=== PATIENT | female | born 1950 | race Caucasian/White ===

== ENCOUNTER → 2017-02-16 14:08 | Outpatient (CLI) | payer BC | END | disposition home or self-care (01) | LOC: D.MAMMO 11:00 | DX: Z12.31 Encounter for screening mammogram for malignant neoplasm of breast (principal) ==

== ENCOUNTER → 2017-03-11 17:16 | Outpatient (CLI) | payer BC | END | disposition home or self-care (01) | LOC: D.MAMMO 10:30 | DX: R92.8 Other abnormal and inconclusive findings on diagnostic imaging of breast (principal) ==

== ENCOUNTER → 2017-07-09 09:07 | Outpatient (CLI) | payer BC | END | disposition home or self-care (01) | LOC: D.CT 09:07 | DX: R49.0 Dysphonia (principal); R07.0 Pain in throat; R22.1 Localized swelling, mass and lump, neck ==

== ENCOUNTER → 2017-12-10 13:38 | Outpatient (CLI) | payer BC | END | disposition home or self-care (01) | LOC: D.RT 13:38 | DX: J44.9 Chronic obstructive pulmonary disease, unspecified (principal) ==

== ENCOUNTER → 2018-06-14 09:18 | Outpatient (CLI) | payer BC | END | disposition home or self-care (01) | LOC: D.CT 09:18 | PROVIDERS: ATTEND Internal Medicine Pulmonary Disease | DX: R91.8 Other nonspecific abnormal finding of lung field (principal) ==

== ENCOUNTER 2018-12-13 05:00 | Inpatient (IN) | payer MEDICARE, BC ==
[2018-12-10 12:23] LABS: ANION GAP 8.5 mmol/L (8-16); CALCIUM 8.7 mg/dL (8.5-10.1); CARBON DIOXIDE 30.7 mmol/L (21.0-32.0); CREATININE - SERUM 0.9 mg/dL (0.6-1.3); POTASSIUM - SERUM 4.2 mmol/L (3.5-5.1)
[2018-12-10 12:30] LABS: BASOPHILS 0.8 % (0-2); EOSINOPHILS 2.2 % (0-7); HEMATOCRIT 40.2 % (36.0-48.0); HEMOGLOBIN 13.9 g/dL (12-16); IMMATURE GRANULOCYTES 0.2 % (0-5); LYMPHOCYTES 30.8 % (15-50); MCH 32.5 pg (26.0-34.0); MCHC 34.6 g/dL (31.0-37.0); MCV 93.9 fL (80.0-100.0); MEAN PLATELET VOLUME 10.5 fL (7.4-10.4); MONOCYTES 6.1 % (2-11); NEUTROPHILS 59.9 % (40-80); PLATELET COUNT 276 10x3/uL (130-400); RBC 4.28 10x6/uL (4.00-5.40); RDW 13.8 % (11.5-14.5); WBC 9.2 10x3/uL (4.8-10.8)
[~2018-12-13] VITALS: Ht 165.1 cm; Wt 59.1 kg
[~2018-12-13 05:00] MED LIST: ALBUTEROL SULF8.5 GM INH; BACLOFEN20 M1 PO; NAPROSYN500 MG PO; NEURONTIN 300300 MG PO; TRAZODONE HCL150 MG PO
[2018-12-13 05:49] VITALS: BP 131/56
--- NOTE | 2018-12-13 11:29 | NUR ---
PT RECIEVED FROM SURGERY VIA BED. BP STABLE. PULSE 44, PT STATES THAT IS HER BASELINE. UNABLE TO OBTAIN OXYGEN SAT AT THIS TIME DUE TO POOR CIRCULATION IN EXTREMITIES, PT'S HAND PLACED UNDER BLANKET, WILL RECHECK. JERICA NOTED, BLUE/GREEN URINE DUE TO MEDICATION RECIEVED IN RECOVERY. PT AND FAMILY EDUCATED ON THIS. PT IS PALE IN APPEARANCE. FAMILY AT BEDSIDE. NO DISTERESS NOTED. BED IN LOWEST POSITION. CALL LIGHT WITHIN REACH. WILL CONTINUE TO MONITOR.
[2018-12-13 14:16] VITALS: BP 131/56; Ht 165.1 cm; Wt 59.1 kg
[2018-12-13 18:16] VITALS: BP 116/59
--- NOTE | 2018-12-13 19:05 | NUR ---
REPORT RECEIVED FROM OFF GOING NURSE. PT IS LAYING IN BED WITH PIZANO TO GRAVITY DRAINAGE. PT STATES KNOWLEDGE OF TIME CYCLE OPERATOR AND HOW TO USE, AND THAT SHE HAS BEEN USING IT NEEDED. PT DENIED FURTHER NEEDS. SHIFT ASSESSMENT COMPLETED, SEE FLOWSHEET FOR DETAILS. NO SIGNS OF ACUTE DISTRESS NOTED. WILL CONTINUE TO MONITOR.
[2018-12-13 19:24] VITALS: BP 108/51
[2018-12-14 00:45] VITALS: BP 108/46
[2018-12-14 06:01] VITALS: BP 107/57
[2018-12-14 07:28] VITALS: BP 117/38
--- NOTE | 2018-12-14 08:05 | NUR ---
PT LAYING IN BED. STATES SHE IS FRUSTRATED BECUASE THEY HAD TO SWITCH HER BED LAST NIGHT, SCD'S ARE NOT WORKING, TOO MUCH STUFF ON THE BED, AND SHE IS COLD. REPOSITIONED PT IN BED TO COMFORTABLE POSITION, TURNED THERMOSTAT UP. WILL REPLACE SCD MACHINE. ASSESSMENT COMPLETE. VAGINAL PACKING SATURATED WITH BLOOD. WILL NOTIFY DR. GA. DENIES FURTHER NEEDS AT THIS TIME. WILL CONTINUE TO MONITOR.
[2018-12-14 11:00] VITALS: BP 114/43
--- NOTE | 2018-12-14 11:22 | NUR ---
BLOOD SATURATED PACKING REMOVED AND PIZANO REMOVED WITH CATHETER TIP INTACT. 1600 ML DARK YELLOW URINE NOTED. INSTRUCTED PT TO NOTIFY ME WHEN SHE NEEDS TO URINATE. SPENT SEVERAL MINUTES ANSWERING QUESTIONS TO PT SATISFACTION. WILL CONTINUE TO MONITOR.
--- NOTE | 2018-12-14 12:28 | NUR ---
I have reviewed this patient and I concur with the Shift Assessment completed by the Licensed Practical Nurse today this shift. BASSEM HAJI IN WITH PATIENT ASSSITING HER TO RESTROOM.
--- NOTE | 2018-12-14 12:37 | NUR ---
IV D/C WITH CATHETER TIP INTACT. PT ASSISTED TO BATHROOM. INSTRUCTED TO CALL BEFORE GETTING BACK IN BED. PT EDUCATED ON POST OP CARE AND LIMITATIONS.
--- NOTE | 2018-12-14 14:01 | NUR ---
350ML CLEAR, DARK YELLOW URINE NOTED.
[2018-12-14] MEDS ORDERED: PERCOCET 7.5/321 TAB PO (15:07)
--- NOTE | 2018-12-14 16:09 | NUR ---
D/C PAPER WORK REVIEWED WITH PT AND FAMILY MEMBER. VERBALIZED UNDERSTANDING. ALL BELONGINGS SENT WITH PT. LEFT VIA WHEELCHAIR TO PERSONAL VEHICLE.
--- NOTE | 2018-12-14 18:14 | MORECARE ---
CASE MANAGEMENT DISCHARGE SUMMARY PATIENT: GAYATRI SALEH UNIT: [id number] ADM DATE: 12/13/18 AGE: 68 : 50 SEX: F ROOM/BED: D.1205 AUTHOR: NORMA PALACIOS PHYSICIAN: REFERRING PHYSICIAN: MADY GA MD DATE OF SERVICE: 12/14/18 Discharge Plan Patient Name: GAYATRI SALEH Facility: [facility]:[place] : 1950 Planned Disposition: Home Anticipated Discharge Date: Discharge Date: 12/14/2018 Expected LOS: Initial Reviewer: [email or web address] Initial Review Date: 12/14/2018 Generated: 12/14/18 7:13 pm DCPIA - Discharge Planning Initial Assessment Updated by [email or web address]: Milka Hendricks on 12/14/18 6:11 pm * Is the patient Alert and Oriented? Yes * PCP PHILIPP * [facility] * Preadmission Environment Home Alone * ADLs Independent * Equipment Walker * List name and contact numbers for known caregivers / representatives who currently or will assist patient after discharge: KENNY GIRARD - DAUGHTER- [phone] REKHA SALEH - SON - [phone] * Verbal permission to speak to the caregivers and representatives has been obtained from the patient. N/A * Community resources currently utilized None * Additional services required to return to the preadmission environment? No * Can the patient safely return to the preadmission environment? Yes * Has this patient been hospitalized within the prior 30 days at any hospital? No Patient Name: GAYATRI SALEH Page 86100 at 1814 All edits/amendments must be made on the electronic document DICTATION DATE: 12/14/181812 LIBRARY AIDE: PEDRO 12/14/181812 RPT#: [id number] DC DATE:12/14/18 STATUS: DIS IN [facility] [address] [place] [address] END OF REPORT
--- NOTE | 2018-12-14 18:25 | MORECARE ---
CASE MANAGEMENT DISCHARGE SUMMARY PATIENT: GAYATRI SALEH UNIT: [id number] ADM DATE: 12/13/18 AGE: 68 : 50 SEX: F ROOM/BED: D.1205 AUTHOR: NORMA PALACIOS PHYSICIAN: REFERRING PHYSICIAN: SENTHIL GA MD DATE OF SERVICE: 12/14/18 Discharge Plan Patient Name: GAYATRI SALEH Facility: [facility]:[place] : 1950 Planned Disposition: Home Anticipated Discharge Date: Discharge Date: 12/14/2018 Expected LOS: Initial Reviewer: [email or web address] Initial Review Date: 12/14/2018 Generated: 12/14/18 7:25 pm Comments DCP- Discharge Planning Updated by [email or web address]: Milka Hendricks on 12/14/18 5:[address] Patient Name: GAYATRI SALEH Admission Status: Elective Accout number: [id number] Admission Date: 12-13-2018 : 1950 Admission Diagnosis: Attending: Senthil Ga Current LOS: 1 Anticipated DC Date: Planned Disposition: Home Primary Insurance: MEDICARE PART A ONLY Discharge Planning Comments: CM met with patient to complete initial dc planning assessment. CM educated patient on the CM role and verbal consent given by patient to complete assessment. Patient lives at home alone where she is independent with her care. At discharge patient plans to return to her son's home for awhile until she recovers from surgery and feels this is a safe discharge. CM discussed availability of home health, rehab services, and medical equipment. Her family will drive her home. Patient denied known discharge needs at this time. CM will continue to follow and will assist as needed with dc plans/needs. Foreign Trade Teacher: Milka Hendricks DCPIA - Discharge Planning Initial Assessment Updated by [email or web address]: Milka Hendricks on 12/14/18 6:11 pm * Is the patient Alert and Oriented? Yes * PCP PHILIPP * [facility] * Preadmission Environment Home Alone * ADLs Independent * Equipment Walker * List name and contact numbers for known caregivers / representatives who currently or will assist patient after discharge: KENNY SHAJI - DAUGHTER- [phone] REKHA THERESE SHEPARD - [phone] * Verbal permission to speak to the caregivers and representatives has been obtained from the patient. N/A * Community resources currently utilized None * Additional services required to return to the preadmission environment? No * Can the patient safely return to the preadmission environment? Yes * Has this patient been hospitalized within the prior 30 days at any hospital? No Last DP export: 12/14/18 5:14 p Patient Name: GAYATRI SALEH Page 87007 at 1825 All edits/amendments must be made on the electronic document DICTATION DATE: 12/14/181824 COMB MACHINE OPERATOR: PEDRO 12/14/181824 RPT#: [id number] DC DATE:12/14/18 STATUS: DIS IN [facility] [address] [place] [address] END OF REPORT
--- NOTE | 2019-01-13 07:14 | OP ---
PATIENT NAME: GAYATRI SALEH MEDICAL RECORD: [id number] :50 LOCATION:D.M3 D.1205 ADMISSION DATE:12/13/18 SURGEON: MADY GA MD DATE OF OPERATION: 12/13/2018 PREOPERATIVE DIAGNOSIS: 1. Pelvic organ prolapse. 2. Uterine prolapse third degree, second-degree cystocele. 3. Second-degree rectocele. POSTOPERATIVE DIAGNOSES: 1. Pelvic organ prolapse. 2. Uterine prolapse third degree, second-degree cystocele. 3. Second-degree rectocele. PROCEDURES: 1. Diagnostic laparoscopy. 2. Laparoscopically assisted vaginal hysterectomy with bilateral salpingo-oophorectomy. 3. Vaginal vault suspension. 4. Anterior colporrhaphy. 5. Posterior colporrhaphy. 6. Cystoscopy. PRIMARY SURGEON: Mady Ga MD IT SECURITY MANAGER SURGEON: Valerio ANESTHESIOLOGIST: Dr. Adams ANESTHESIA: General. FINDINGS: Uterus prolapses to the hymenal ring. After completion of the vault suspension, an obvious anterior and posterior defect also exists. At the time of the cystoscopy, unremarkable vaginal mucosa with good efflux of urine from both ureteral orifices. SPECIMENS REMOVED: 1. Uterus with cervix. 2. Bilateral tubes. 3. Bilateral ovaries. SPECIMEN DISPOSITION: All specimens to pathology. ESTIMATED BLOOD LOSS: 150 cc. FLUIDS: 1400 cc of lactated Ringer's. URINE OUTPUT: 275 cc of clear urine. COMPLICATIONS: None. DRAINS: Awad to gravity with vaginal packing. INDICATIONS: The patient is a 68-year-old active female with pelvic pressure OPERATIVE REPORT [id number] GAYATRI SALEH and noting a bulge at the vaginal opening with prolonged standing or Valsalva. The patient is examined and found to have a third-degree uterine prolapse. The patient is consented for laparoscopically assisted vaginal hysterectomy, bilateral salpingo-oophorectomy with vault suspension and any indicated procedure. DESCRIPTION OF PROCEDURE: After informed consent was assured, the patient was taken to the operating room where anesthetic was obtained. The patient was placed in Yellofin stirrups and prepped and draped in the usual sterile fashion. Incision was made at the umbilicus to accommodate a 5-mm trocar, which was inserted without difficulty and pneumoperitoneum developed. Accessory ports were placed in the right and left lower quadrants. With the patient in Trendelenburg position, the bowel swept free of the pelvis. The right tube was elevated. Infundibulopelvic ligament identified and now compressed, coagulated, and near the ovary. This dissection was carried out underneath the ovary across the round ligament and the anterior leaf of the broad ligament was incised. A bladder flap was developed to the midline. This was repeated on the patient's contralateral side. With the infundibulopelvic ligament now incised and the round ligament incised, a bladder flap is now fully developed. At this point, the laparoscopic portion of this procedure is concluded. The drape was placed over the abdomen. The legs positioned. With a Bovie cautery, the mucosa overlying the cervix is incised. Posterior space was entered with Vaughn scissors and the peritoneum tagged to the mucosa. With the long-billed weighted speculum now inserted, both uterosacral ligaments are identified, clamped, cut, and tied and held to be used later in the procedure. The anterior pouch is now entered sharply and a retractor placed. The remaining portions of the cardinal ligaments are clamped, cut and tied until the uterus is now removed from the vagina. Using an Allis clamp, the uterosacral ligament is grasped approximately 3-4 cm above the vaginal cuff. This is performed in both the left and right sides. Using an Ethibond stitch, a bridge of tissue is now used to reapproximate these 2 spaces. A Vicryl stitch is now placed through the posterior cuff and through the bridge of tissue created by the Ethibond. The vaginal cuff was now closed in an anterior to posterior fashion. Upon reaching the level of the uterosacral ligaments that were previously held with suture, they are plicated in the midline. The close is continued over this complex until the cup is closed. The Vicryl stitch was passed through the posterior cuff and this is tied securing the vaginal vault to apical support. Pneumoperitoneum is now reestablished and the pelvis inspected and found to be hemostatic. After concluding the laparoscopic inspection, the pelvis was copiously irrigated and irrigant removed. The cystoscopy is now performed with a 70-degree cystoscope. Both ureteral orifices are visualized with good efflux of urine. Sponge, lap, and needle counts correct times 2. The patient was awakened and went to the recovery room in stable condition. Prior to awakening, the patient had a Awad catheter and vaginal packing placed. TRANSINT:[id number] Voice Confirmation ID: [id number] DOCUMENT ID: [id number] OPERATIVE REPORT [id number] GAYATRI SALEH,MADY Valdez MD at 0714 CC: [id number] DICTATION DATE: 01/04/19 0738 BOOK OR SCRIPT EDITOR: 01/04/19 0759 DIS IN 12/14/[address] [id number]
== END 2018-12-14 16:12 | disposition home or self-care (01) | DRG 743 ==
LOC: D.OPS 05:00 → D.PAN 07:00 → D.OPS 07:00 → D.PAN 07:30 → D.OPS 07:30 → D.M3 11:23 → D.OPS 11:24 → D.M3 11:24
PROVIDERS: ADMIT Obstetrics & Gynecology; ATTEND Obstetrics & Gynecology
PROC: 0JQC3ZZ Repair Pelvic Region Subcutaneous Tissue and Fascia, Percutaneous Approach (ICD-10-PCS; 2018-12-13)
PROC: 0UT9FZZ Resection of Uterus, Via Natural or Artificial Opening With Percutaneous Endoscopic Assistance (ICD-10-PCS; principal; 2018-12-13 07:00)
PROC: 0UT7FZZ Resection of Bilateral Fallopian Tubes, Via Natural or Artificial Opening With Percutaneous Endoscopic Assistance (ICD-10-PCS; 2018-12-13 07:00)
PROC: 0UT2FZZ Resection of Bilateral Ovaries, Via Natural or Artificial Opening With Percutaneous Endoscopic Assistance (ICD-10-PCS; 2018-12-13 07:00)
PROC: 0USG7ZZ Reposition Vagina, Via Natural or Artificial Opening (ICD-10-PCS; 2018-12-13 07:00)
DX: N81.4 Uterovaginal prolapse, unspecified (principal); F17.210 Nicotine dependence, cigarettes, uncomplicated

== ENCOUNTER 2019-01-02 10:17 | Inpatient (IN) | payer MEDICARE, BC ==
[~2019-01-02] VITALS: Ht 165.1 cm; Wt 52.2 kg
[~2019-01-02 10:17] MED LIST changes: +PERCOCET 7.5/321 TAB PO
[2019-01-02 11:09] LABS: ALBUMIN 2.4 g/dL (3.4-5.0); ALKALINE PHOSPHATASE 487 U/L (46-116); ALT (SGPT) 25 U/L (10-68); BILIRUBIN - TOTAL 1.21 mg/dL (0.2-1.3); CALC OSMOLALITY 275 mosm/kg (275-300); CALCIUM 9.6 mg/dL (8.5-10.1); CARBON DIOXIDE 26.3 mmol/L (21.0-32.0); CHLORIDE - SERUM 99 mmol/L (98-107); CREATININE - SERUM 0.7 mg/dL (0.6-1.3); GLUCOSE 131 mg/dL (74-106); HEMATOCRIT 35.9 % (36.0-48.0); HEMOGLOBIN 12.6 g/dL (12-16); MCH 32.6 pg (26.0-34.0); MCHC 35.1 g/dL (31.0-37.0); MCV 92.8 fL (80.0-100.0); MEAN PLATELET VOLUME 9.8 fL (7.4-10.4); PLATELET COUNT 528 10x3/uL (130-400); POTASSIUM - SERUM 4.5 mmol/L (3.5-5.1); PROTEIN - SERUM 7.6 g/dL (6.4-8.2); RBC 3.87 10x6/uL (4.00-5.40); RDW 13.5 % (11.5-14.5); SODIUM 136 mmol/L (136-145); UREA NITROGEN 18 mg/dL (7-18); WBC 27.3 10x3/uL (4.8-10.8); eGFR NON AFRICAN AMERICAN 88 mL/min (90-120)
[2019-01-02 11:16] LABS: LIPASE 41 U/L (73-393); TROPONIN-I < 0.017 ng/mL (0.000-0.060)
[2019-01-02 11:18] LABS: APPEARANCE CLOUDY (CLEAR); BILIRUBIN NEGATIVE (NEGATIVE); COLOR YELLOW (YELLOW); GLUCOSE NEGATIVE (NEGATIVE); KETONE LARGE mg/dL (NEGATIVE); NITRITE NEGATIVE (NEGATIVE); PROTEIN 2+ mg/dL (NEGATIVE); UROBILINOGEN NORMAL (NORMAL)
[2019-01-02 11:19] LABS: AMORPHOUS SEDIMENT <1+ /lpf (NONE SEEN); BACTERIA MANY /hpf (NEGATIVE); MUCUS >1+ /lpf (NONE SEEN)
[2019-01-02 11:53] LABS: LYMPHOCYTES 6 % (15-50); MONOCYTES 8 % (2-11); NEUTROPHILS 81 % (40-80); PLATELET ESTIMATE NORMAL
[2019-01-02 13:04] VITALS: BP 139/46
[2019-01-02] MEDS ORDERED: NEXIUM20 MG PO (14:51)
[2019-01-02] MEDS ORDERED: BEVESPI AEROS10.7 GM INH (14:55)
[2019-01-02] MEDS ORDERED: PEPTO-BISM525 MG/15 PO (14:56)
[2019-01-02 15:36] VITALS: BMI 19.1
[2019-01-02 15:58] LABS: APTT 43.1 SECONDS (22.8-39.4); INR 1.12 (0.85-1.17); PROTIME 13.9 SECONDS (11.6-15.0)
[2019-01-02 20:33] VITALS: BP 111/44
[2019-01-02 22:35] LABS: CREATINE KINASE 33 UL (21-215); TROPONIN-I < 0.017 ng/mL (0.000-0.060)
[2019-01-03 00:57] VITALS: BP 95/43
[2019-01-03 03:19] LABS: BASOPHILS 0.2 % (0-2); EOSINOPHILS 0 % (0-7); HEMOGLOBIN 11.3 g/dL (12-16); IMMATURE GRANULOCYTES 0.9 % (0-5); LYMPHOCYTES 8.2 % (15-50); MCHC 34.2 g/dL (31.0-37.0); MEAN PLATELET VOLUME 9.7 fL (7.4-10.4); MONOCYTES 7.7 % (2-11); PLATELET COUNT 485 10x3/uL (130-400); RBC 3.65 10x6/uL (4.00-5.40); RDW 13.2 % (11.5-14.5)
[2019-01-03 03:31] LABS: CALCIUM 7.4 mg/dL (8.5-10.1); CARBON DIOXIDE 22.7 mmol/L (21.0-32.0); CHLORIDE - SERUM 108 mmol/L (98-107); CKMB 1.2 U/L (0.0-3.6); CREATINE KINASE 57 UL (21-215); GLUCOSE 120 mg/dL (74-106); SODIUM 140 mmol/L (136-145)
[2019-01-03 03:34] LABS: CALC OSMOLALITY 279 mosm/kg (275-300); CREATININE - SERUM 0.5 mg/dL (0.6-1.3); POTASSIUM - SERUM 3.5 mmol/L (3.5-5.1); TROPONIN-I < 0.017 ng/mL (0.000-0.060); UREA NITROGEN 13 mg/dL (7-18); eGFR NON AFRICAN AMERICAN > 90 mL/min (90-120)
[2019-01-03 03:35] LABS: MCV 90.4 fL (80.0-100.0); WBC 12.9 10x3/uL (4.8-10.8)
[2019-01-03 05:08] VITALS: BP 106/46
--- NOTE | 2019-01-03 08:05 | OP ---
PATIENT NAME: GAYATRI SALEH MEDICAL RECORD: [id number] :50 LOCATION:D.MS [id number] ADMISSION DATE:01/02/19 SURGEON: MENDOZA PERERA MD DATE OF OPERATION: 01/02/2019 SURGEON: Mendoza Perera MD PRODUCTION SUPPORT ENGINEER SURGEON: Senthil Anand MD PREOPERATIVE DIAGNOSIS: Perforated viscus. POSTOPERATIVE DIAGNOSES: Closed loop bowel obstruction with necrotic gangrenous small bowel and multiple intraloop abscesses. PROCEDURES: 1. Diagnostic laparoscopy with drainage of multiple interloop abscesses. 2. Laparoscopic adhesiolysis. 3. Laparotomy 4. Small-bowel resection. 5. Abdominal washout. ANESTHESIA: General. COMPLICATIONS: None. SPECIMENS: Necrotic and gangrenous small bowel approximately 20 cm. COMPLICATIONS: None. Case was grossly contaminated. OPERATIVE COURSE: After consent was obtained, the patient was taken to the operating room, general anesthesia was given. A timeout was taken to confirm the correct patient and procedure. The abdomen was prepped and draped in typical sterile fashion. Local anesthetic was injected in the left upper quadrant at Harris's point. A stab incision was made with an 11-blade scalpel. Using a 5-mm bladeless optical trocar, the abdomen was entered under direct laparoscopic vision. Adequate pneumoperitoneum was achieved. Two additional 5-mm trocars were then placed in the left lateral and left lower quadrants. At this time, there were moderately dense adhesions throughout the abdominal cavity. The greater omentum was retracted cephalad exposing the transverse mesocolon, which was held in the cephalad position. At this time, laparoscopic adhesiolysis was performed. During this laparoscopic adhesiolysis of the small bowel, interloop abscess was encountered in the right upper quadrant, approximately 30 cc of pus was suctioned from the abdominal abscess into a Lukens trap, which was sent for Gram stain culture and sensitivity. We continued laparoscopic adhesiolysis, a second intraloop abscess was identified within the mid to distal small bowel. This continued until all the small bowel was freed. There was one loop of small bowel that was densely adherent in the deep pelvis, which was unable to move laparoscopically. The cecum was identified. The appendix was identified. The terminal ileum was followed proximally until it was also seen going into the loop into the pelvis. At this time, the small bowel was able to be run from the ligament of Treitz for approximately 2/3 of the small bowel. The distal third OPERATIVE REPORT [id number] GAYATRI SALEH of the bowel was densely adherent to the pelvic cavity but returned. The terminal ileum was identifiable returning from the pelvis. At this time, a small laparotomy incision was made through the umbilicus. An Rolando GelPort retractor was placed. The small bowel was bluntly dissected out of the pelvis and once this was freed up, the small bowel loop within the pelvis was extracorporealized. The bowel had full-thickness gangrenous necrosis. The mesentery was twisted causing a closed loop bowel obstruction with infarction. At this time, a small bowel resection was performed using the 75-mm linear YE staplers. Enterotomies were made using the electrocautery. A common enterotomy was made with a single firing of the 75-mm stapler. The common enterotomy was then closed with a second firing of the YE green load stapler. The mesentery was taken with the Harmonic scalpel. The small bowel specimen was passed off the field for permanent pathology. The mesenteric window was closed with 3-0 Vicryl suture. The staple line was imbricated using 3-0 Vicryl suture. The anastomosis was widely patent. The small bowel was then run from the ligament of Treitz to the terminal ileum on multiple occasions examining the bowel for any defects. There were no small bowel injuries noted. There was no active drainage. The abdominal cavity was irrigated with 3 liters of warm normal saline. Two CARYN drain with 1 CARYN drain was placed in the pelvis and 1 CARYN drain was placed in the right upper quadrant. The fascia was closed with #1 looped PDS. Skin was closed with mike. CARYN drains were secured to the skin with a 2-0 nylon suture. Sterile dressings were applied. Dr. Anand was present throughout the laparotomy. He assisted during the laparotomy and small bowel resection. He inspected the vaginal cuff. At the end of the case, all needle and instrument counts were correct. No complications occurred. The patient was extubated and transferred to PACU in stable condition. TRANSINT:[id number] Voice Confirmation ID: [id number] DOCUMENT ID: [id number] MENDOZA PERERA MD at 0805 CC: [id number] DICTATION DATE: 01/02/191947 SHOEMAKER APPRENTICE: 01/03/19 0234 ADM IN [facility] [address] [facility], [facility]
[2019-01-03 08:24] VITALS: BP 99/44
[2019-01-03 09:48] LABS: CKMB 1.4 U/L (0.0-3.6); CREATINE KINASE 83 UL (21-215); TROPONIN-I < 0.017 ng/mL (0.000-0.060)
[2019-01-03 11:58] VITALS: Ht 165.1 cm; Wt 52.2 kg
[2019-01-03 13:33] VITALS: BP 106/47
[2019-01-03 16:07] VITALS: BP 109/42
[2019-01-03 19:50] VITALS: BP 91/33
[2019-01-04 00:40] VITALS: BP 94/42
[2019-01-04 04:00] VITALS: BP 124/39
[2019-01-04 05:29] LABS: BASOPHILS 0.4 % (0-2); EOSINOPHILS 0.2 % (0-7); HEMATOCRIT 28.3 % (36.0-48.0); HEMOGLOBIN 9.6 g/dL (12-16); IMMATURE GRANULOCYTES 3.9 % (0-5); LYMPHOCYTES 9.1 % (15-50); MCH 31.1 pg (26.0-34.0); MCHC 33.9 g/dL (31.0-37.0); MCV 91.6 fL (80.0-100.0); MEAN PLATELET VOLUME 9.9 fL (7.4-10.4); MONOCYTES 6.7 % (2-11); NEUTROPHILS 79.7 % (40-80); PLATELET COUNT 497 10x3/uL (130-400); RBC 3.09 10x6/uL (4.00-5.40); RDW 13.6 % (11.5-14.5)
[2019-01-04 05:43] LABS: CALC OSMOLALITY 290 mosm/kg (275-300); CARBON DIOXIDE 27.8 mmol/L (21.0-32.0); CHLORIDE - SERUM 109 mmol/L (98-107); CREATININE - SERUM 0.6 mg/dL (0.6-1.3); GLUCOSE 121 mg/dL (74-106); POTASSIUM - SERUM 3.8 mmol/L (3.5-5.1); SODIUM 145 mmol/L (136-145); UREA NITROGEN 14 mg/dL (7-18); eGFR NON AFRICAN AMERICAN > 90 mL/min (90-120)
[2019-01-04 05:44] LABS: WBC 16.2 10x3/uL (4.8-10.8)
[2019-01-04 08:29] VITALS: BP 142/76; BP 97/31
[2019-01-04 12:38] VITALS: BP 119/51
--- NOTE | 2019-01-04 15:31 | MORECARE ---
CASE MANAGEMENT DISCHARGE SUMMARY PATIENT: GAYATRI SALEH UNIT: [id number] ADM DATE: 01/02/19 AGE: 68 : 50 SEX: F ROOM/BED: D.2205 AUTHOR: NORMA PALACIOS PHYSICIAN: REFERRING PHYSICIAN: CHRISTOPHER SEGAL MD DATE OF SERVICE: 01/04/19 Discharge Plan Patient Name: GAYATRI SALEH Facility: [facility]:[place] : 1950 Planned Disposition: Home or Self Care Anticipated Discharge Date: Discharge Date: Expected LOS: Initial Reviewer: [email or web address] Initial Review Date: 01/02/2019 Generated: 01/04/19 4:31 pm DCPIA - Discharge Planning Initial Assessment Updated by [email or web address]: Ariane Bunch on 01/04/19 3:28 pm * Is the patient Alert and Oriented? Yes * PCP melonie * [facility] [address] * Preadmission Environment Home Alone * ADLs Independent * Equipment Rolling Walker * List name and contact numbers for known caregivers / representatives who currently or will assist patient after discharge: vanessa hooper (daughter) [phone] georgia (son) [phone] * Verbal permission to speak to the caregivers and representatives has been obtained from the patient. N/A * Community resources currently utilized None * Additional services required to return to the preadmission environment? Yes * Can the patient safely return to the preadmission environment? Yes * Has this patient been hospitalized within the prior 30 days at any hospital? Yes Patient Name: GAYATRI SALEH Page 04100 at 1531 All edits/amendments must be made on the electronic document DICTATION DATE: 01/04/19 153 HYDROGEN CELL TENDER: PEDRO 01/04/19 153 RPT#: [id number] DC DATE: STATUS: ADM IN [facility] [address] [place] [address] END OF REPORT
--- NOTE | 2019-01-04 15:40 | MORECARE ---
CASE MANAGEMENT DISCHARGE SUMMARY PATIENT: GAYATRI SALEH UNIT: [id number] ADM DATE: 01/02/19 AGE: 68 : 50 SEX: F ROOM/BED: D.2860 AUTHOR: PHILIP,DOC PHYSICIAN: REFERRING PHYSICIAN: CHRISTOPHER SEGAL MD DATE OF SERVICE: 01/04/19 Discharge Plan Patient Name: GAYATRI SALEH Facility: [facility]:[place] : 1950 Planned Disposition: Home or Self Care Anticipated Discharge Date: Discharge Date: Expected LOS: Initial Reviewer: [email or web address] Initial Review Date: 01/02/2019 Generated: 01/04/19 4:40 pm Comments DCP- Discharge Planning Updated by [email or web address]: Ariane Bunch on 01/04/19 2:[address] Patient Name: GAYATRI SALEH Admission Status: ER Accout number: [id number] Admission Date: 01-02-2019 : 1950 Admission Diagnosis: Attending: CHRISTOPHER SEGAL Current LOS: 2 Anticipated DC Date: Planned Disposition: Home or Self Care Primary Insurance: MEDICARE PART A ONLY Discharge Planning Comments: CM met with patient to complete initial dc planning assessment. CM educated patient on the CM role and verbal consent given by patient to complete assessment. Patient lives at home where she is independent with her care. At discharge patient plans to return home and feels this is a safe discharge. CM discussed availability of home health, rehab services, and medical equipment. She has a walker at home but questioned about needing home O2. I explained to her that we would test her prior to DC if needed. LULU signed for no preference for DME if needed. Her adult children will help her at home if needed and they will be the ones to drive her home. IMM served and explained, copy placed in chart. Patient denied known discharge needs at this time. CM will continue to follow and will assist as needed with dc plans/needs. Clock And Watch Hands Dipper: Ariane Bunch DCPIA - Discharge Planning Initial Assessment Updated by [email or web address]: Ariane Bunch on 01/04/19 3:28 pm * Is the patient Alert and Oriented? Yes * PCP melonie * Pharmacy [facility] [address] * Preadmission Environment Home Alone * ADLs Independent * Equipment Rolling Walker * List name and contact numbers for known caregivers / representatives who currently or will assist patient after discharge: vanessa hooper (daughter) [phone] ge[place] (son) [phone] * Verbal permission to speak to the caregivers and representatives has been obtained from the patient. N/A * Community resources currently utilized None * Additional services required to return to the preadmission environment? Yes * Can the patient safely return to the preadmission environment? Yes * Has this patient been hospitalized within the prior 30 days at any hospital? Yes Coverage Notice Reviewer: [email or web address] Bettye Bunch Notice Issued Date-Time: 01/04/2019 15:23 Notice Type: IM Discharge Notice Notice Delivered To: Patient Relationship to Patient: Overlock Waistline Joiner Name: Delivery Method: HAND - Hand Delivered Hannah Days: Prior Verbal Notification: Recipient Understood Notice: Yes Recipient Signature: Yes Med Rec Note Co-signed by Attending: Coverage Notice Comment: Reviewer: [id number] Bunch Notice Issued Date-Time: 01/04/2019 15:23 Notice Type: Patient Choice Letter Notice Delivered To: Patient Relationship to Patient: Overlock Waistline Joiner Name: Delivery Method: HAND - Hand Delivered Hannah Days: Prior Verbal Notification: Recipient Understood Notice: Yes Recipient Signature: Yes Med Rec Note Co-signed by Attending: Coverage Notice Comment: lulu for dme0- no preference Last DP export: 01/04/19 2:31 Patient Name: GAYATRI SALEH Page [id number] at 1540 All edits/amendments must be made on the electronic document DICTATION DATE: 01/04/19 154 DRILLING ENGINEERING MANAGER: PEDRO 01/04/19 1540 RPT#: [id number] DC DATE: STATUS: ADM IN [facility] [address] [place] [address] END OF REPORT
[2019-01-04 21:27] VITALS: BP 110/52
[2019-01-05 01:14] VITALS: BP 130/56
[2019-01-05 05:15] VITALS: BP 124/60
[2019-01-05 05:28] LABS: BASOPHILS 0.4 % (0-2); EOSINOPHILS 0.4 % (0-7); HEMATOCRIT 24.8 % (36.0-48.0); HEMOGLOBIN 8.3 g/dL (12-16); IMMATURE GRANULOCYTES 3.1 % (0-5); LYMPHOCYTES 11.9 % (15-50); MCH 30.9 pg (26.0-34.0); MCHC 33.5 g/dL (31.0-37.0); MCV 92.2 fL (80.0-100.0); MEAN PLATELET VOLUME 9.7 fL (7.4-10.4); NEUTROPHILS 75.2 % (40-80); PLATELET COUNT 466 10x3/uL (130-400); RBC 2.69 10x6/uL (4.00-5.40); RDW 13.8 % (11.5-14.5); WBC 16.9 10x3/uL (4.8-10.8)
[2019-01-05 05:59] LABS: CALC OSMOLALITY 284 mosm/kg (275-300); CALCIUM 7.8 mg/dL (8.5-10.1); CARBON DIOXIDE 29.1 mmol/L (21.0-32.0); CHLORIDE - SERUM 107 mmol/L (98-107); CREATININE - SERUM 0.5 mg/dL (0.6-1.3); GLUCOSE 112 mg/dL (74-106); SODIUM 143 mmol/L (136-145); UREA NITROGEN 11 mg/dL (7-18); eGFR NON AFRICAN AMERICAN > 90 mL/min (90-120)
--- NOTE | 2019-01-05 06:43 | HP ---
PATIENT: GAYATRI SALEH MEDICAL RECORD: [id number] ACCOUNT: [id number] LOCATION:D.MS [id number] : [birth year] ADMISSION DATE: 01/02/19 PCP: CHRISTOPHER SEGAL HISTORY AND PHYSICAL EXAMINATION REASON FOR ADMISSION: Abdominal pain, vomiting. HISTORY OF PRESENT ILLNESS: The patient is a 68-year-old female who is 3 weeks post a lap-assisted vaginal hysterectomy, cystocele and rectocele repair by Dr. Anand. She has done pretty well, actually saw him Thursday for followup STAIR BUILDER exam. She is unsure of her pathology findings, but stated after she got back from that exam, she developed acute onset of abdominal pain. She has had nausea with vomiting and hold nothing down the last several days. She told her son about this today and he brought her to the Emergency Room. She denies fever. She said she has had normal bowel movements and no blood in her stool. She also states she has never had a colonoscopy, but has had a Cologuard. She has had some dysuria and urgency as well. Denies history of previous recurrent bladder infections, but has had a peptic ulcer in the past, she states. PAST MEDICAL HISTORY: COPD, followed by Dr. Sanders. She had a questionable left upper lobe lung lesion earlier in the year with an abnormal PET scan. She is being followed by serial CT scans on this. Osteoarthritis; cervicalgia with muscle contraction headache followed by Dr. Machado, neurology at [facility]; stomach ulcer; insomnia. SURGICAL HISTORY: Tethered spinal nerve block, recent lap-assisted vaginal hysterectomy with recto and cystocele repairs. FAMILY HISTORY: Father of heart disease. Mother complications of COPD. SOCIAL HISTORY: She has been a half pack a day smoker for most of her life. She drinks occasional alcohol. She has worked part-time at [employer], has a daughter and son living near. She does live alone and performs all her ADLs. MEDICATIONS: Trazodone 100 mg at bedtime for sleep, baclofen 200 mg t.i.d. as needed for low back pain, gabapentin 300 mg p.o. t.i.d., valacyclovir 1 gm p.o. t.i.d., ProAir HFA 1-2 puffs q.6 hours p.r.n., naproxen sodium 500 mg p.o. b.i.d., Claritin 10 mg a day. ALLERGIES: PENICILLIN. REVIEW OF SYSTEMS: GENERAL: She has not felt well for the last 5 days. She denies fever. HEENT: No recent visual change, sinus congestion, or sore throat. RESPIRATORY: She has chronic cough that is nonproductive. She has exertional shortness of breath if she exerts very much. CARDIAC: No exertional chest pain, claudication, edema, had recent negative stress test per Dr. Coleman. GASTROINTESTINAL: She has had nausea with intractable vomiting, unable to hold out any fluids or solids for the last 5 days. She has had normal stools, she states. No melena or bright red blood per rectum or hematemesis. MUSCULOSKELETAL: Has chronic lumbago. INTEGUMENT: No rash or itching. HISTORY AND PHYSICAL [id number] GAYATRI SALEH PSYCHIATRIC: Denies depress mood. GYNECOLOGICAL: As above. No recent vaginal bleeding. GENITOURINARY: Has had urinary urgency and dysuria for the last couple of days. PHYSICAL EXAMINATION: GENERAL: Alert, 68-year-old female appearing older than stated age. VITAL SIGNS: Her blood pressure is 125/55, temperature is 98 degrees Fahrenheit, pulse is 115, respirations are 20, sats 99% on room air. GENERAL: The patient is alert and oriented, in moderate pain. HEENT: Her eyes are clear, nonicteric. Pupils reactive. Oropharynx unremarkable except for dry mucous membranes. NECK: Supple, without bruits or masses. CHEST: Distant breath sounds without wheeze or rales. HEART: Regular rate without MGR. PMI appropriate. BREASTS: Symmetrical. ABDOMEN: Silent, diffusely tender with rebound. PELVIC: Deferred. EXTREMITIES: No CC&E. NEUROLOGIC: Oriented to person, place, and time. Cranial nerves intact. Gait was not tested due to pain. LABORATORY DATA: His white count 27.3 thousand with 81% polys, H&H is 12.6 and 35.9 respectively, platelet count is 528,000. BUN and creatinine are 18 and 0.7, glucose is 131 nonfasting, alkaline phosphatase is elevated at 487, albumin is low at 2.4, and lipase is 41, low. Urinalysis shows urine is cloudy, large ketones, 10-20 red and white cells on a cath specimen, many bacteria. DIAGNOSTIC DATA: Radiology interpretation of CT scan shows free air in the abdomen and fluid in the mid abdomen with findings of enteritis and possible colitis, suggesting a ruptured viscus. ASSESSMENT: 1. Acute abdomen with leukocytosis, possible ruptured viscus versus diverticulitis. 2. Recent lap-assisted vaginal hysterectomy. 3. Urinary tract infection. 4. COPD. 5. Nicotine abuse. 6. Osteoarthritis with chronic pain. 7. Cervicalgia causing chronic headaches, postmenopausal. PLAN: The patient is in the ER, currently be admitted to 2204. The ER physician has contacted Dr. Turner for surgical consult and he has ordered CT with oral contrast. We again placed her on IV fluids, IV antibiotics, broad spectrum. I have reviewed results with the patient and her son currently. Lactic acid is normal. TRANSINT:[id number] Voice Confirmation ID: [id number] DOCUMENT ID: [id number] HISTORY AND PHYSICAL [id number] GAYATRI SALEH TIMOTHY MD at 0643 CC: [id number] DICTATION DATE: 01/02/19 1420 FARE COLLECTOR: 01/02/19 [address] [facility] [address] [place] [address]
[2019-01-05 09:04] VITALS: BP 118/44
[2019-01-05 12:46] VITALS: BP 118/42
[2019-01-05 16:38] VITALS: BP 114/53
[2019-01-05 20:00] VITALS: BP 107/44
[2019-01-06 04:00] VITALS: BP 128/40
[2019-01-06 05:33] LABS: BASOPHILS 0.3 % (0-2); EOSINOPHILS 0.4 % (0-7); HEMATOCRIT 27.1 % (36.0-48.0); IMMATURE GRANULOCYTES 3.2 % (0-5); LYMPHOCYTES 14.3 % (15-50); MCH 31.1 pg (26.0-34.0); MCHC 33.2 g/dL (31.0-37.0); MCV 93.8 fL (80.0-100.0); MEAN PLATELET VOLUME 9.8 fL (7.4-10.4); MONOCYTES 10.4 % (2-11); NEUTROPHILS 71.4 % (40-80); PLATELET COUNT 538 10x3/uL (130-400); RBC 2.89 10x6/uL (4.00-5.40); RDW 13.9 % (11.5-14.5); WBC 15.6 10x3/uL (4.8-10.8)
[2019-01-06 05:48] LABS: CALC OSMOLALITY 276 mosm/kg (275-300); CARBON DIOXIDE 28.2 mmol/L (21.0-32.0); CHLORIDE - SERUM 104 mmol/L (98-107); CREATININE - SERUM 0.6 mg/dL (0.6-1.3); GLUCOSE 92 mg/dL (74-106); SODIUM 139 mmol/L (136-145); UREA NITROGEN 10 mg/dL (7-18); eGFR NON AFRICAN AMERICAN > 90 mL/min (90-120)
[2019-01-06] MEDS ORDERED: HYDROCODON-ACE1 EAC7 PO (08:41)
[2019-01-06] MEDS ORDERED: LEVOFLOXACIN500 MG PO (08:48)
[2019-01-06 09:48] VITALS: BP 135/51
--- NOTE | 2019-01-06 11:59 | MORECARE ---
CASE MANAGEMENT DISCHARGE SUMMARY PATIENT: GAYATRI SALEH UNIT: [id number] ADM DATE: 01/02/19 AGE: 68 : 50 SEX: F ROOM/BED: D.6614 AUTHOR: PHILIP,DOC PHYSICIAN: REFERRING PHYSICIAN: CHRISTOPHER SEGAL MD DATE OF SERVICE: 01/06/19 Discharge Plan Patient Name: GAYATRI SALEH Facility: [facility]:[place] : 1950 Planned Disposition: Home or Self Care Anticipated Discharge Date: Discharge Date: Expected LOS: Initial Reviewer: [email or web address] Initial Review Date: 01/02/2019 Generated: 01/06/19 12:58 pm Comments DCP- Discharge Planning Updated by [email or web address]: Ariane Bunch on 01/04/19 2:[address] Patient Name: GAYATRI SALEH Admission Status: ER Accout number: [id number] Admission Date: 01-02-2019 : 1950 Admission Diagnosis: Attending: CHRISTOPHER SEGAL Current LOS: 2 Anticipated DC Date: Planned Disposition: Home or Self Care Primary Insurance: MEDICARE PART A ONLY Discharge Planning Comments: CM met with patient to complete initial dc planning assessment. CM educated patient on the CM role and verbal consent given by patient to complete assessment. Patient lives at home where she is independent with her care. At discharge patient plans to return home and feels this is a safe discharge. CM discussed availability of home health, rehab services, and medical equipment. She has a walker at home but questioned about needing home O2. I explained to her that we would test her prior to DC if needed. LULU signed for no preference for DME if needed. Her adult children will help her at home if needed and they will be the ones to drive her home. IMM served and explained, copy placed in chart. Patient denied known discharge needs at this time. CM will continue to follow and will assist as needed with dc plans/needs. Measurement And Verification Engineer: Ariane Bunch DCPIA - Discharge Planning Initial Assessment Updated by [email or web address]: Ariane Bunch on 01/04/19 3:28 pm * Is the patient Alert and Oriented? Yes * PCP melonie * [facility] * Preadmission Environment Home Alone * ADLs Independent * Equipment Rolling Walker * List name and contact numbers for known caregivers / representatives who currently or will assist patient after discharge: vanessa hooper (daughter) [phone] [place] (son) [phone] * Verbal permission to speak to the caregivers and representatives has been obtained from the patient. N/A * Community resources currently utilized None * Additional services required to return to the preadmission environment? Yes * Can the patient safely return to the preadmission environment? Yes * Has this patient been hospitalized within the prior 30 days at any hospital? Yes External Providers External Provider: Celine Worthington Contact Date: Service Request Date: Service Type: Resolution: Reviewer: Comments: Coverage Notice Reviewer: [id number] Bunch Notice Issued Date-Time: 01/04/2019 15:23 Notice Type: IM Discharge Notice Notice Delivered To: Patient Relationship to Patient: Post Partum Nurse Name: Delivery Method: HAND - Hand Delivered Hannah Days: Prior Verbal Notification: Recipient Understood Notice: Yes Recipient Signature: Yes Med Rec Note Co-signed by Attending: Coverage Notice Comment: Reviewer: [id number] Bunch Notice Issued Date-Time: 01/04/2019 15:23 Notice Type: Patient Choice Letter Notice Delivered To: Patient Relationship to Patient: Post Partum Nurse Name: Delivery Method: HAND - Hand Delivered Hannah Days: Prior Verbal Notification: Recipient Understood Notice: Yes Recipient Signature: Yes Med Rec Note Co-signed by Attending: Coverage Notice Comment: lulu for dme0- no preference Last DP export: 01/04/19 2:40 Patient Name: GAYATRI SALEH Page [id number] at 1159 All edits/amendments must be made on the electronic document DICTATION DATE: 01/06/19 115 BROADCAST MAINTENANCE ENGINEER: PEDRO 01/06/19 1158 RPT#: [id number] DC DATE: STATUS: ADM IN [facility] [address] [place] [address] END OF REPORT
[2019-01-06 12:29] VITALS: BP 117/57
--- NOTE | 2019-01-06 13:02 | MORECARE ---
CASE MANAGEMENT DISCHARGE SUMMARY PATIENT: GAYATRI SALEH UNIT: [id number] ADM DATE: 01/02/19 AGE: 68 : 50 SEX: F ROOM/BED: D.2208 AUTHOR: PHILIP,DOC PHYSICIAN: REFERRING PHYSICIAN: CHRISTOPHER SEGAL MD DATE OF SERVICE: 01/06/19 Discharge Plan Patient Name: GAYATRI SALEH Facility: [facility]:[place] : 1950 Planned Disposition: Home or Self Care Anticipated Discharge Date: Discharge Date: Expected LOS: Initial Reviewer: [id number] Initial Review Date: 01/02/2019 Generated: 01/06/19 2:01 pm Comments DCP- Discharge Planning Updated by [email or web address]: Ariane Bunch on 01/06/19 11:[address] Patient will be discharging home today with O2 from [facility]. Patient is discharging home in a chronic stable state DCP- Discharge Planning Updated by [id number]: Ariane Bunch on 01/04/19 2:[address] Patient Name: GAYATRI SALEH Admission Status: ER Accout number: [id number] Admission Date: 01-02-2019 : 1950 Admission Diagnosis: Attending: CHRISTOPHER SEGAL Current LOS: 2 Anticipated DC Date: Planned Disposition: Home or Self Care Primary Insurance: MEDICARE PART A ONLY Discharge Planning Comments: CM met with patient to complete initial dc planning assessment. CM educated patient on the CM role and verbal consent given by patient to complete assessment. Patient lives at home where she is independent with her care. At discharge patient plans to return home and feels this is a safe discharge. CM discussed availability of home health, rehab services, and medical equipment. She has a walker at home but questioned about needing home O2. I explained to her that we would test her prior to DC if needed. LULU signed for no preference for DME if needed. Her adult children will help her at home if needed and they will be the ones to drive her home. IMM served and explained, copy placed in chart. Patient denied known discharge needs at this time. CM will continue to follow and will assist as needed with dc plans/needs. Film Developing Machine Operator: Ariane Bunch DCPIA - Discharge Planning Initial Assessment Updated by [id number]: Ariane Bunch on 01/04/19 3:28 pm * Is the patient Alert and Oriented? Yes * PCP melonie * [facility]acy [facility] [address] * Preadmission Environment Home Alone * ADLs Independent * Equipment Rolling Walker * List name and contact numbers for known caregivers / representatives who currently or will assist patient after discharge: vanessa hooper (daughter) [phone] [place] (son) [phone] * Verbal permission to speak to the caregivers and representatives has been obtained from the patient. N/A * Community resources currently utilized None * Additional services required to return to the preadmission environment? Yes * Can the patient safely return to the preadmission environment? Yes * Has this patient been hospitalized within the prior 30 days at any hospital? Yes Coverage Notice Reviewer: [id number] Bettye Bunch Notice Issued Date-Time: 01/04/2019 15:23 Notice Type: IM Discharge Notice Notice Delivered To: Patient Relationship to Patient: Travel Registered Nurse Pacu Name: Delivery Method: HAND - Hand Delivered Hannah Days: Prior Verbal Notification: Recipient Understood Notice: Yes Recipient Signature: Yes Med Rec Note Co-signed by Attending: Coverage Notice Comment: Reviewer: [id number] Bettye Bunch Notice Issued Date-Time: 01/04/2019 15:23 Notice Type: Patient Choice Letter Notice Delivered To: Patient Relationship to Patient: Travel Registered Nurse Pacu Name: Delivery Method: HAND - Hand Delivered Hannah Days: Prior Verbal Notification: Recipient Understood Notice: Yes Recipient Signature: Yes Med Rec Note Co-signed by Attending: Coverage Notice Comment: lulu for dme0- no preference Last DP export: 01/06/19 10:59 Patient Name: GAYATRI SALEH Page [phone] at 1302 All edits/amendments must be made on the electronic document DICTATION DATE: 01/06/19 1301 SENIOR NETWORK SECURITY ENGINEER: PEDRO 01/06/19 1301 RPT#: [id number] DC DATE: STATUS: ADM IN [facility] [address] [place] [address] END OF REPORT
--- NOTE | 2019-01-07 13:28 | EC ---
PATIENT:GAYATRI SALEH DATE OF SERVICE: 01/02/19 SEX: F MEDICAL RECORD: [id number] DATE OF : [birth year] LOCATION:D.MS Alejandre220 AGE OF PATIENT: 68 ADMISSION DATE: 01/02/19 REFERRING PHYSICIAN: INTERPRETING PHYSICIAN: SAM JAMES MD ECHOCARDIOGRAM REPORT ECHO CHARGES 4 ECHO COMPLETE Date: 01/03/19 CLINICAL DIAGNOSIS: SOB ECHOCARDIOGRAPHIC MEASUREMENTS (adult normal given) AC root (d.<3.7cm) 2.7 cm LV Septum d (<1.2 cm> 0.9 cm Valve Excursion 1.6 cm LV Septum (systole) 1.5 cm Left Atria (s.<4.0cm> 3.4 cm LVPW d(<1.2cm) 1.3 cm RV (d.<2.3cm) 2.8 cm LVPW (sytole) 1.4 cm LV diastole(<5.6CM) 5.2 cm MV E-F(>70mm/sec) cm LV systole 4.1 cm LVOT Diameter 2.0 cm MV exc.(>10mm) cm Est.ejection fraction (50-75%) % DOPPLER: LVIT cm/sec A 99 cm/sec E 69 cm/sec LA cm/sec RVSP 35.5 mmHg LVOT 138 cm/sec AOP1/2T m/s Asc. Ao 158 cm/sec RVOT 70 cm/sec RA cm/sec PA 84 cm/sec AV Gradient Peak 10.0 mmHg AV Mean 5.0 mmHg AV Area 2.5 cm MV Gradient Peak 3.8 mmHg MV Mean 2.0 mmHg MV Area cm COMMENTS: School Transportation Supervisor: Julian MELENDREZ Analyst Competitive Intelligence: 1 Dr. James TAPE# PACS Pericardial Effusion N DATE OF SERVICE: 01/02/2019 ECHOCARDIOGRAM FINDINGS: 1. Left ventricular chamber size is within normal limits. Left ventricular systolic function is normal at 60%. 2. Left atrium, right atrium, and right ventricular chamber sizes are within normal limits. 3. Valvular structures have normal structure and motion. ECHOCARDIOGRAM REPORT [id number] GAYATRI SALEH 4. Doppler interrogation only reveals trace tricuspid regurgitation, no other valvular insufficiency or stenosis. 5. No evidence of pericardial effusion or left ventricular thrombus. TRANSINT:[id number] Voice Confirmation ID: [id number] DOCUMENT ID: [id number] SAM JAMES MD at 1328 CC: [id number] DICTATION DATE: 01/03/19 154 VEGETABLE CUTTER: 01/03/192226 DIS IN 01/06/19 [place] [id number] [place] [id number]
--- NOTE | 2019-01-07 13:28 | CN ---
PATIENT NAME:GAYATRI HYLTON MEDICAL RECORD: [id number] : 50 LOCATION:D.MS Alejandre2205 ADMIT DATE: 01/02/19 ACCOUNT: [id number] CONSULTING PHYSICIAN: SAM PALMER MD REFERRING PHYSICIAN: CHRISTOPHER SEGAL MD DATE OF CONSULTATION: 01/03/2019 DIAGNOSES: 1. Abnormal EKG with changes. 2. Status post abdominal surgery. 3. Smoking. 4. Chronic obstructive pulmonary disease. HISTORY OF PRESENT ILLNESS: Mrs. Hylton has no previous cardiac history. She is having no chest pain, no chest discomfort status post abdominal surgery for perforation. Her EKG was initially normal. Her EKG now has deep T-wave inversions throughout the lateral and anterior leads. She has not had a previous cardiac workup. PHYSICAL EXAMINATION: CONSTITUTIONAL/GENERAL APPEARANCE: Well nourished, well developed, appears stated age. EYES: Lids and conjunctivae noninjected. No discharge. No pallor. ENT: Lips within normal limit. No cyanosis. No pallor. NECK: Carotid arteries, bilateral normal upstroke. No bruits. No thrills. No jugular venous pressure or distention. CERVICAL LYMPH NODES: Nontender. Nonenlarged. THYROID: Not enlarged. No nodules. CARDIOVASCULAR: Precordial exam, nondisplaced. No heaves or pericardial thrills. Rate and rhythm, regular. Heart sounds, normal S1, normal S2. No S3, no gallop, no rub. Systolic murmur, not heard. Diastolic murmur, not heard. RESPIRATORY: Respiratory effort, unlabored. Normal curvature. No thoracic deformity. No chest wall tenderness. Percussion, resonant. Auscultation, clear. No wheezes, no rales, no rhonchi. ABDOMEN: Soft, nondistended, nontender. No abdominal pain, no vomiting and normal appetite. MUSCULOSKELETAL: No joint tenderness, normal gait, normal tone. SKIN: Warm and dry. OVERALL IMPRESSION: Markedly abnormal EKG at this time, most likely she does have hemodynamically significant coronary artery disease and does have ongoing ischemia. She is asymptomatic though her systolic blood pressures in the 90-100 range, heart rate is in the 110 range, hence we cannot beta mike her, would not use nitrates. She does need a cardiac workup from the standpoint of ischemia, but after she is stable from a surgical and abdominal standpoint being asymptomatic. TRANSINT:[id number] Voice Confirmation ID: [id number] DOCUMENT ID: [id number] CONSULT REPORT [id number] GAYATRI HYLTON JEFFREY MD at 1328 CC: [id number] DICTATION DATE: 01/03/19 1009 AVIATION MAINTENANCE TECHNICIAN: 01/03/19 1225 DIS IN 01/06/19 [place] [id number] [place] [address]
[2019-01-09 18:07] LABS: AEROBE ID Final report (())
--- NOTE | 2019-01-10 14:48 | MORECARE ---
CASE MANAGEMENT DISCHARGE SUMMARY PATIENT: GAYATRI SALEH UNIT: [id number] ADM DATE: 01/02/19 AGE: 68 : 50 SEX: F ROOM/BED: D.5866 AUTHOR: PHILIP,DOC PHYSICIAN: REFERRING PHYSICIAN: CHRISTOPHER SEGAL MD DATE OF SERVICE: 01/10/19 Discharge Plan Patient Name: GAYATRI SALEH Facility: [facility]:[place] : 1950 Planned Disposition: Home or Self Care Anticipated Discharge Date: Discharge Date: 01/06/2019 Expected LOS: Initial Reviewer: [email or web address] Initial Review Date: 01/02/2019 Generated: 01/10/19 3:48 pm Comments DCP- Discharge Planning Updated by [email or web address]: Ariane Bunch on 01/06/19 11:[address] Patient will be discharging home today with O2 from [facility] [place]. Patient is discharging home in a chronic stable state DCP- Discharge Planning Updated by [id number]: Ariane Bunch on 01/04/19 2:[address] Patient Name: GAYATRI SALEH Admission Status: ER Accout number: [id number] Admission Date: 01-02-2019 : 1950 Admission Diagnosis: Attending: CHRISTOPHER SEGAL Current LOS: 2 Anticipated DC Date: Planned Disposition: Home or Self Care Primary Insurance: MEDICARE PART A ONLY Discharge Planning Comments: CM met with patient to complete initial dc planning assessment. CM educated patient on the CM role and verbal consent given by patient to complete assessment. Patient lives at home where she is independent with her care. At discharge patient plans to return home and feels this is a safe discharge. CM discussed availability of home health, rehab services, and medical equipment. She has a walker at home but questioned about needing home O2. I explained to her that we would test her prior to DC if needed. LULU signed for no preference for DME if needed. Her adult children will help her at home if needed and they will be the ones to drive her home. IMM served and explained, copy placed in chart. Patient denied known discharge needs at this time. CM will continue to follow and will assist as needed with dc plans/needs. Digital Developer: Ariane Bunch DCPIA - Discharge Planning Initial Assessment Updated by [id number]: Ariane Bunch on 01/04/19 3:28 pm * Is the patient Alert and Oriented? Yes * PCP melonie * Pharmacy [facility] [address] * Preadmission Environment Home Alone * ADLs Independent * Equipment Rolling Walker * List name and contact numbers for known caregivers / representatives who currently or will assist patient after discharge: vanessa hooper (daughter) [phone] [place] (son) [phone] * Verbal permission to speak to the caregivers and representatives has been obtained from the patient. N/A * Community resources currently utilized None * Additional services required to return to the preadmission environment? Yes * Can the patient safely return to the preadmission environment? Yes * Has this patient been hospitalized within the prior 30 days at any hospital? Yes Coverage Notice Reviewer: [id number] Bettye Bunch Notice Issued Date-Time: 01/04/2019 15:23 Notice Type: IM Discharge Notice Notice Delivered To: Patient Relationship to Patient: Career Manager Name: Delivery Method: HAND - Hand Delivered Hannah Days: Prior Verbal Notification: Recipient Understood Notice: Yes Recipient Signature: Yes Med Rec Note Co-signed by Attending: Coverage Notice Comment: Reviewer: [email or web address] Bettye Bunch Notice Issued Date-Time: 01/04/2019 15:23 Notice Type: Patient Choice Letter Notice Delivered To: Patient Relationship to Patient: Career Manager Name: Delivery Method: HAND - Hand Delivered Hannah Days: Prior Verbal Notification: Recipient Understood Notice: Yes Recipient Signature: Yes Med Rec Note Co-signed by Attending: Coverage Notice Comment: lulu for dme0- no preference Last DP export: 01/06/19 12:02 Patient Name: GAYATRI SALEH Page [id number] at 1448 All edits/amendments must be made on the electronic document DICTATION DATE: 01/10/191447 SENIOR CYBER INTELLIGENCE ANALYST: PEDRO 01/10/191447 RPT#: [id number] DC DATE:01/06/19 STATUS: DIS IN [facility] [address] [place] [address] END OF REPORT
== END 2019-01-06 17:04 | disposition home or self-care (01) | DRG 853 ==
LOC: D.ER 10:17 → D.MS 13:07
PROVIDERS: Emergency Medicine; Family Medicine; Surgery; ADMIT Family Medicine; ATTEND Family Medicine
PROC: 0DN84ZZ Release Small Intestine, Percutaneous Endoscopic Approach (ICD-10-PCS; 2019-01-02)
PROC: 0DT80ZZ Resection of Small Intestine, Open Approach (ICD-10-PCS; principal; 2019-01-02 16:34)
PROC: 0D9 Gastrointestinal System, Drainage (ICD-10-PCS; 2019-01-02 16:34)
DX: A41.9 Sepsis, unspecified organism (principal); K55.019 Acute (reversible) ischemia of small intestine, extent unspecified; K63.1 Perforation of intestine (nontraumatic); N39.0 Urinary tract infection, site not specified; K63.0 Abscess of intestine; M54.2 Cervicalgia; R51 Headache; F17.200 Nicotine dependence, unspecified, uncomplicated; J43.9 Emphysema, unspecified; R94.31 Abnormal electrocardiogram [ECG] [EKG]

== ENCOUNTER → 2019-05-16 10:49 | Outpatient (CLI) | payer BC ==
[2019-01-03 11:58] VITALS: BMI 19.1
== END | disposition home or self-care (01) ==
LOC: D.CT 09:30
PROVIDERS: ATTEND Internal Medicine Pulmonary Disease
DX: J44.9 Chronic obstructive pulmonary disease, unspecified (principal); R91.8 Other nonspecific abnormal finding of lung field